=== PATIENT | male | born 1985 | race Caucasian/White ===

== ENCOUNTER 2024-04-07 17:42 | Emergency (ER) | payer BC, SELFPAY ==
--- NOTE | 2024-04-07 18:05 | ED_ITS ---
Discharge Plan Disposition Patient Disposition: Home, Self-Care Condition: Good Prescriptions Prescriptions: New doxycycline hyclate 100 mg capsule 100 mg PO Q12 10 Days Qty: 20 0RF cephalexin 500 mg capsule 500 mg PO QID 10 Days Qty: 40 0RF mupirocin 2 % ointment 1 applic topical TID 7 Days Qty: 15 0RF No Action metformin 500 mg tablet PO 90 Days Qty: 180 Patient Comments: simvastatin 20 mg tablet 20 mg PO QPM Referrals Follow up/Referrals: Tereza Waters [Primary Care Provider] - See instructions Activity Restrictions/Add. Instructions Additional Instructions/Restrictions: Rest the extremities, Elevate the extremities as tolerated while you are resting. Take tylenol or ibuprofen for pain. Take the antibiotics as directed. Apply the topical antibiotic ointment to the affected areas as directed. Follow up with Dr. Jimenez (podiatry). I put in a referral but you need to call her office and schedule an appointment. Soak your feet in warm epsom salts water 2 or 3 times per day for the next fews days. MAKE ABSOLUTELY SURE YOU DON'T BURN YOUR FEET BY THE WATER BEING TOO HOT. Follow up with your regular doctor. GO TO THE ER FOR ANY WORSENING SYMPTOMS We took a culture the drainage from your right great toe. This will tell what bacteria is causing your infection and which antibiotics will treat it best.This test takes 3 days to complete. Make sure you follow up to go over these results with your pcp or the bill distributor. Clinical Impressions Clinical Impression: Cellulitis of foot, right, Cellulitis of left foot, Diabetes Instructions Patient Instructions: Cellulitis Print Language Print Language: Latvian Discharge ED Provider: Raghu Pierre [facility] General Stated complaint: swollen right foot Time Seen by Provider: 04/07/24 18:05 History of Present Illness Provider Complaint: He states that for the past 3 days he has had worsening bilateral toe redness, swelling and drainage. He is a diabetic. He has been playing a lot of golf recently. He bought new golf shoes last week. He denies fever/chills/malaise. Related Data Home Medications ?Medication ?Instructions ?Recorded ?Confirmed metformin 500 mg tablet PO 90 days ##180 08/29/17 simvastatin 20 mg tablet 20 mg PO QPM 08/29/17 Previous Rx's ?Medication ?Instructions ?Recorded cephalexin 500 mg capsule 500 mg PO QID 10 days #40 caps 04/07/24 doxycycline hyclate 100 mg capsule 100 mg PO Q12 10 days #20 caps 04/07/24 mupirocin 2 % topical ointment 1 applic topical TID 7 days #15 04/07/24 grams Allergies Allergy/AdvReac Type Severity Reaction Status Date / Time Sulfa (Sulfonamide Allergy Mild Verified 08/29/17 12:37 Antibiotics) [facility] Disclaimer: The information contained in this section may have been updated after the patient was seen, as this information can be updated by other users. Social History Smoking Status: Never smoker alcohol intake: current alcohol intake frequency: holidays/special occasions only current occupational status: employed Travel in the last 8 weeks: None ROS Obtained: Yes All systems reviewed & no additional complaints except as documented Constitutional Constitutional: Denies chills and Denies fever(s) Eyes Eyes: Denies eye discharge ENT Ears, Nose, Mouth, and Throat: Denies dizziness, Denies otalgia and Denies sore throat Cardiovascular Cardiovascular: Denies chest pain Respiratory Respiratory: Denies shortness of breath, Denies chest congestion, Denies cough, Denies stridor and Denies wheezing Gastrointestinal Gastrointestingal: Denies nausea or vomiting Musculoskeletal Musculoskeletal: Reports system reviewed and no additional complaints, except as documented and Denies arthralgias Integumentary/Breasts Skin/Breast: Reports as per HPI, Reports redness and Reports wounds Neurologic Neurologic: Denies dizziness and Denies paresthesias Allergic/Immunologic Allergic/Immunologic: Denies wheezing Physical Exam General General appearance: alert and in no apparent distress Head Head exam: atraumatic, normocephalic and normal inspection Eye Eye exam: Present normal appearance, PERRL and EOMI ENT ENT exam: Present normal exam, normal oropharynx, mucous membranes moist, TM's normal bilaterally and normal external ear exam Neck Neck exam: Present normal inspection, full ROM and trachea midline; Absent meningismus or lymphadenopathy Chest Chest inspection: Present normal inspection and symmetric chest wall rise; Absent tenderness Respiratory Respiratory exam: Present normal lung sounds bilaterally; Absent respiratory distress Cardiovascular Cardiovascular exam: Present regular rate and normal rhythm; Absent JVD Abdominal Exam Abdominal exam: Present soft and normal bowel sounds; Absent distention, tenderness or guarding Extremities Exam Extremities exam: Present normal inspection, full ROM and normal capillary refill; Absent calf tenderness Back Exam Back exam: Present normal inspection; Absent tenderness Neurological Exam Neurological exam: Present alert and oriented X3 Psychiatric Psychiatric exam: Present normal affect and normal mood Skin Skin exam: Present erythema (there is erythema of both his great toes, his right great toe has a moderate amount of clear drainage in the lateral nail fold. ) Lymphatic Lymphatic Findings: no adenopathy Medical Decision Making Medical Records Medical records reviewed: No I reviewed the patient's medical records. Screening: Per USPSTF and CDC recommendations, given the prevalence of disease in our region, it is our hospital?s policy to screen for HIV and viral Hepatitis for all patients aged 18 and over and those with ongoing risk factors. Sal Inquiry Pt receiving controlled substance: No
[2024-04-07 18:10] VITALS: BP 126/75; PULSE 83; RESP 20; TEMP 36.6; O2SAT 96; BMI 38.1
[2024-04-07] MEDS: LIDOCAINE 1% 5ML PF VIAL IM (18:43)
[2024-04-07] MEDS: cefTRIAXone 1GM VIAL 1 GM IM (18:43)
[2024-04-07 19:13] VITALS: BP 126/75; PULSE 83; RESP 20; TEMP 36.6; O2SAT 96
--- NOTE | 2024-04-12 15:03 | PC.NURSE ---
REVIEWED PATIENT'S WOUND CULTURE RESULTS WITH Evelyn KHOURY APRN. THERE IS NO SENSITIVITY WITH THE CULTURE. SPOKE WITH TRENT FROM PHARMACY WHO STATES ORGANISM IS NORMAL TORY AND PATIENT SHOULD CONTINUE CURRENT ANTIBIOTIC
== END 2024-04-07 19:14 | disposition home or self-care (01) ==
PROVIDERS: Emergency Provider Nurse Practitioner Family; PCP Nurse Practitioner Family
DX: L03.115 Cellulitis of right lower limb (principal); L03.116 Cellulitis of left lower limb; B96.89 Other specified bacterial agents as the cause of diseases classified elsewhere; E11.9 Type 2 diabetes mellitus without complications; Z79.84 Long term (current) use of oral hypoglycemic drugs
CPT/HCPCS: 87070; 87077; 87205; 96372; 99204; 99212; G0463; J0696

== ENCOUNTER 2024-05-03 14:15 | Outpatient (CLI) | payer BC, SELFPAY ==
--- NOTE | 2024-05-03 14:21 | XR_ITS ---
PROCEDURE INFORMATION: Exam: XR Right Foot Complete; Alignment Exam date and time: 05/03/2024 2:26 PM Age: 38 years old Clinical indication: Pain; Foot; Right; Additional info: Foot pain/injury TECHNIQUE: Imaging protocol: Radiologic exam of the right foot. Views: 3 or more views. COMPARISON: No relevant prior studies available. FINDINGS: Bones/joints: Acute transverse fracture through the 5th metatarsal proximal diaphysis. Moderate posterior calcaneal enthesophyte. Soft tissues: Soft tissue swelling. IMPRESSION: Acute transverse fracture through the 5th metatarsal proximal diaphysis.
== END 2024-05-03 23:59 | disposition home or self-care (01) ==
LOC: RAD 14:17
PROVIDERS: PCP Nurse Practitioner Family; Visit Provider Podiatrist
DX: M79.671 Pain in right foot (principal); S99.921A Unspecified injury of right foot, initial encounter
CPT/HCPCS: 73630

== ENCOUNTER 2024-05-03 15:43 | Outpatient (RCR) | payer BC, SELFPAY | END 2024-05-03 16:30 | disposition home or self-care (01) | LOC: PT 15:43 | PROVIDERS: Visit Provider Podiatrist | DX: M77.41 Metatarsalgia, right foot (principal); S92.351A Displaced fracture of fifth metatarsal bone, right foot, initial encounter for closed fracture | CPT/HCPCS: 97760 ==

== ENCOUNTER 2024-05-13 09:28 | Outpatient (CLI) | payer BC, SELFPAY ==
--- NOTE | 2024-05-13 09:31 | XR_ITS ---
PROCEDURE INFORMATION: Exam: XR Right Foot Exam date and time: 05/13/2024 9:34 AM Age: 38 years old Clinical indication: Difficulty in walking; Additional info: 5th met fracture TECHNIQUE: Imaging protocol: Radiologic exam of the right foot. Views: 3 or more views. COMPARISON: CR XR FOOT WT BEARING RT 3V 05/03/2024 2:26 PM FINDINGS: Bones/joints: Healing nondisplaced 5th metatarsal fracture. Fracture fragments are in good alignment.. Degenerative changes in the 1st metatarsophalangeal joint and IP joint Soft tissues: Soft tissue swelling along the ulnar aspect of the foot IMPRESSION: Healing nondisplaced 5th metatarsal fracture. Fracture fragments are in good alignment..
[2024-05-13 11:12] LABS: Basophils # 0.2 K/mm3 (0-0.2); Basophils % 1.8 % (0.1-2.0); Eosinophils # 0.4 K/mm3 (0.0-0.4); Eosinophils % 4.2 % (0.1-12.0); Hematocrit 44.7 % (42.0-52.0); Hemoglobin 15.3 g/dL (14.1-18.0); Lymphocytes # 1.9 K/mm3 (0.7-4.5); Lymphocytes % 22.4 % (10-50); Mean Corpuscular HGB Conc 34.3 g/dL (31.8-35.4); Mean Corpuscular Hemoglobin 27.4 pg (27.0-31.2); Mean Corpuscular Volume 79.8 fl (80-94); Mean Platelet Volume 6.8 fl (7.4-10.4); Monocytes # 0.6 K/mm3 (0.1-1.0); Monocytes % 6.3 % (1.7-9.3); Neutrophils # 5.7 K/mm3 (1.8-7.8); Neutrophils % 65.3 % (37.0-80.0); Platelet Count 263 K/mm3 (142-424); Red Cell Distribution Width 13.3 % (11.5-17.5); White Blood Count 8.7 K/mm3 (4.8-10.8)
[2024-05-13 11:22] LABS: Hemoglobin A1C 8.1 % (4.0-6.0)
[2024-05-13 11:46] LABS: Alanine Aminotransferase 61 U/L (12-78); Albumin Level 4.5 g/dl (3.5-5.0); Albumin/Globulin Ratio 1.6 (1.1-1.8); Alkaline Phosphatase 69 U/L (38-126); Anion Gap 20.5 mEq/L (5-15); Aspartate Amino Transferase 38 U/L (17-59); Bilirubin,Total 0.8 mg/dl (0.2-1.3); Blood Urea Nitrogen 16 mg/dl (9-20); Calcium 9.4 mg/dl (8.4-10.2); Carbon Dioxide 24 mmol/L (22.0-30.0); Chloride 97 mmol/L (98-107); Estimated Glomerular Filt Rate 126 ml/min (>60); GFR (African American) 152 ML/MIN (>60); Globulin 2.8 g/dL (1.3-3.2); Glucose 226 mg/dl (74-100); Potassium 4.5 mmoL/L (3.5-5.1); Sodium 137 mmol/L (136-145); Total Protein,Serum 7.3 g/dl (6.3-8.2)
[2024-05-13 11:51] LABS: C-Reactive Protein 3.9 mg/L (0-4)
[2024-05-13 12:24] LABS: Erythrocyte Sedimentation Rate 5 mm/hr (0-15)
[2024-05-25 03:43] LABS: 1,25 Dihydroxy Vitamin D 42 pg/mL (.); 1,25-Dihydroxy, Vitamin D-2 <10 pg/mL (.); 1,25-Dihydroxy, Vitamin D-3 34 pg/mL (.)
== END 2024-05-13 23:59 | disposition home or self-care (01) ==
PROVIDERS: PCP Nurse Practitioner Family; Visit Provider Podiatrist
DX: S92.353A Displaced fracture of fifth metatarsal bone, unspecified foot, initial encounter for closed fracture (principal); Z01.818 Encounter for other preprocedural examination
CPT/HCPCS: 36415; 73630; 80053; 82652; 83036; 85025; 85651; 86140

== ENCOUNTER 2024-05-17 08:49 | Outpatient (CLI) | payer BC, SELFPAY ==
--- NOTE | 2024-05-17 08:54 | XR_ITS ---
PROCEDURE INFORMATION: Exam: XR Chest Exam date and time: 05/17/2024 8:56 AM Age: 38 years old Clinical indication: Shortness of breath; Additional info: Pre-operative exam, dm, SOB TECHNIQUE: Imaging protocol: Radiologic exam of the chest. Views: 2 views. COMPARISON: No relevant prior studies available. FINDINGS: Lungs: Atelectasis left base. No consolidation. Pleural spaces: Unremarkable. No pleural effusion. No pneumothorax. Heart/Mediastinum: Unremarkable. No cardiomegaly. Bones/joints: Unremarkable. IMPRESSION: No acute findings.
--- NOTE | 2024-05-17 09:23 | ECG_ITS ---
APPROVED REPORT Exam: Resting ECG HR:80 bpm ECG Measurements Heart Rate 80 AXES NE 139 P 42 QRSd 103 QRS 9 QT 380 T 49 QTc 416 Conclusion SINUS RHYTHM LOW QRS VOLTAGE IN PRECORDIAL LEADS [QRS DEFLECTION < 1.0 mV IN CHEST LEADS] BORDERLINE ECG UNCONFIRMED REPORT Electronically signed by : Rocky Cox MD 05/20/2024 08:21:41
== END 2024-05-17 23:59 | disposition home or self-care (01) ==
LOC: RAD 08:51
PROVIDERS: PCP Nurse Practitioner Family; Visit Provider Podiatrist
DX: Z01.818 Encounter for other preprocedural examination (principal)
CPT/HCPCS: 71046; 93005

== ENCOUNTER 2024-05-29 14:47 | Outpatient (CLI) | payer BC, SELFPAY ==
--- NOTE | 2024-05-29 14:51 | XR_ITS ---
FINAL REPORT CLINICAL HISTORY: evaluate fracture healing fracture 4 weeks ago COMPARISON: None FINDINGS: RIGHT FOOT: Three views of the right foot were obtained. There is a subacute appearing nondisplaced fracture of the proximal fifth metatarsal. No significant callus formation is identified. The joint spaces are intact. There is no soft tissue abnormality. IMPRESSION: Subacute appearing nondisplaced fracture of the proximal fifth metatarsal. No significant callus formation is identified. Reviewed, Interpreted and Dictated by Jesus Mac III, MD Transcribed by Donna Reyna Authenticated and . [facility]
== END 2024-05-29 23:59 | disposition home or self-care (01) ==
LOC: RAD 14:48
PROVIDERS: PCP Nurse Practitioner Family; Visit Provider Podiatrist
DX: S99.191A Other physeal fracture of right metatarsal, initial encounter for closed fracture (principal)
CPT/HCPCS: 73630

== ENCOUNTER 2024-06-05 10:16 | Day surgery (SDC) | payer BC, SELFPAY ==
[2024-06-04 09:48] VITALS: BMI 37.5
[2024-06-05] VITALS (10 sets, daily range): BP systolic 113–150; BP diastolic 64–88; PULSE 79–94; RESP 16–20; TEMP 36.1–36.6; O2SAT 92–96
[2024-06-05 11:06] LABS: POC Glucose,Bedside 129 (70-110)
--- NOTE | 2024-06-05 11:37 | EXP.ANES.CKL ---
[facility] Disclaimer: The information contained in this section may have been updated after the patient was seen, as this information can be updated by other users. Medical History Hyperlipidemia Hypertension Fracture of base of fifth metatarsal bone of right foot at metaphyseal-diaphyseal junction Diabetes Surgical History H/O wisdom tooth extraction Family History Father Family history of diabetes mellitus type II Grandmother Family history of diabetes mellitus type II Colon cancer Melanoma Mother Melanoma Social History Smoking Status: Former smoker alcohol intake: never substance use type: denies use current occupational status: employed Travel in the last 8 weeks: None [facility] Anesthesia Checklist Patient Identification Patient Identification: Arm Band and Verbal (Name & ) Structural Data Admitted From: Home Planned Operative Procedure/s: R. 5th metatarsal ORIF Consent for Planned Operative Procedure(s) Verified: Yes Verified Documents: Surgical Consent and History and Physical NPO Status Verified Time NPO: 00:00 Additional verifications Anesthesia Reactions: No Hx Blood Transfusions: No Blood Transfusion Reaction: No Airway Assessment Mallampati Score:: Class II C-Spine Mobility Assessed: Yes TMJ Mobility Assessed: Yes Dentition: Good Dentition Neurological Assessment Level of Consciousness: Awake Hx Seizures: No Numbness or tingling in extremities: No Anesthesia Plan Anesthesia Risk discussed: Yes Anesthesia Plan: Verified ASA Class: III Anesthesia Type: General w/block
--- NOTE | 2024-06-05 12:57 | XR_ITS ---
FINAL REPORT CLINICAL HISTORY: ORIF 5TH METAT 2.38 MGY 1.15 FT FINDINGS: FLUOROSCOPY LESS THAN 1 HOUR HISTORY: Fluoroscopy guidance. Fluoroscopic guidance was provided for right foot fifth metatarsal ORIF. 2 spot films were obtained. A total of 1.15 minutes of fluoroscopy time were used. Total DAP: 2.38 mGy IMPRESSION: As above. Reviewed, Interpreted and Dictated by Francisco Castro MD Transcribed by Madelin Huang Authenticated and [facility]
--- NOTE | 2024-06-05 13:06 | P.PNANES_ITS ---
[facility] Anesthesia Record Part I Anesthesia Record I Intake, IV Amount: 1,200 Hydration: Adequate Estimated blood loss (mL): 20 Urine output (mL): 0 Blood Pressure: 113/64 SaO2: 94 Pulse Rate: 85 Airway Patency: Patent Respiratory Rate: 20 Temperature: 97.4 F Patient is:: Drowsy Stable to PACU at:: 13:00
--- NOTE | 2024-06-05 13:11 | EXP.OP.NOTE ---
Date of procedure: 06/05/24 Pre-op Diagnosis:: Right fifth metatarsal Palm fracture Peroneal tenosynovitis Post-op Diagnosis:: Same Procedure performed:: Right fifth metatarsal ORIF Peroneal tenosynovectomy Surgeon:: Sarah Jimenez DPM FOIL SPOOLER:: Alicia Card Anesthesia: GETA and regional (Left regional block) Estimated blood loss (mL): 10 Clinical Note:: Patient is 38 diabetic male presents with right foot pain s/p twisting injury 05/02/24. X-rays reviewed and discussed with the patient. Conservative treatment discussed including prolonged nonweightbearing immobilization in fracture boot. Explained to the nature of the Palm fracture and decreased vascularity from the watershed area fracture healing nonoperatively may take 8-12 weeks. Discussed due to pes cavus foot type, over loading lateral column is higher risk for ankle sprain, 5th met fx, peroneal pathology. Discussed increased 5th met fx recurrence risk. Patient would like a shorter return to activity if possible. We discussed surgery. Discussed that there still could be a prolonged period of immobilization even postoperatively and if the fracture is not healed by 12 weeks, he may need a bone stimulator. Patient understands surgery does not guarantee fracture healing but there is a decrease chance of fracture recurrence. Discussed increased risk secondary to diabetes including Charcot, prolonged healing and skin or bone. Has history of HA1C over 9%. Patient understands his A1c will need to be 8% to proceed with surgery. Discussed minimally invasive surgery to decrease risk of skin/wound healing and infection. All risks and benefits were discussed including but not limited to: damage to blood vessels and nerves, bleeding, infection, wound complications, delayed, mal or non-union of bone, post-traumatic arthritis, need for further surgery, implant failure, need for removal of implant, prolonged or permanent swelling of the extremity, prolonged or permanent pain or deformity, CRPS/RSD, DVT/PE, and anesthetic complications including . No guarantees were given. All questions fully answered. The patient verbalized understanding and agreed to proceed with surgery. Written consent was obtained. Patient has a fracture boot and RKS. Necessary labs and pre-op testing ordered: CBC, CMP, ESR, CRP, EKG, CXR. Plan for Bactrim vs Doxy post op. EKG, chest x-ray reviewed and medical clearance from PCPTereza. Operative findings:: Right fifth metatarsal Palm fracture noted. There is no callus noted at the fracture site. Peroneal tendon had tenosynovitis noted. No obvious peroneal tendon tear or rupture noted. Operative note:: On this date and time patient was deemed an appropriate surgical candidate. With informed consent signed, pre-op regional popliteal block given by anesthesia. The patient was taken to the operating theater. The patient was positioned supine. General anesthesia was induced. IV Ancef given. Tourniquet applied to the right mid-calf. Right lower extremity was prepped and draped in normal sterile fashion. Right Bone Marrow Aspiration: Attention was directed to the lateral foot, where intra-op fluoroscopy was used to map out the 5th metatarsal base on both the AP, MO and lateral views. 15 blade was used to make a stab incision over the fracture site under intraoperative fluoroscopy. Dissection down to level of bone. Curette used to clean the fracture site. Saline used to flush wound. 3cc of blood was withdrawn to mix with the Ignite for BMA to insert into fracture site. Right 5th Metatarsal/Palm Fracture ORIF: Attention was directed to the lateral foot, where intra-op fluoroscopy was used to map out the 5th metatarsal base on both the AP, MO and lateral views. Next, a 15' blade was used to make a small incision proximal to the 5th met base. Blunt dissection was utilized to dissect thru skin and subcutaneous tissue with care taken to maintain surgical hemostasis and safely retract neurovascular structures. Dissection was then carried bluntly with a hemostat to the bone. Fracture was derotated and reduced. The wound was flushed with copious amounts of saline. A guide wire for a 5.5mm Marroquin medical screw was inserted under fluoro. Position was checked in all 3 planes. The K-wire was in good position, extending down the medullary canal. At this point, a cannulated drill and tap were used. Ignite inserted into fracture site. The guide wire was then removed and a 64mm solid core 5.5mm Vilex medical screw was inserted in standard technique, while compressing the fracture. Good screw purchase and compression was noted. At this point final position was checked under intra-op fluoro and deemed to be appropriate with stable fixation. Right peroneal tenosynovectomy: The peroneal tendon had synovitis noted. 15 blade and forceps used to debride the tenosynovitis. A piece was removed and sent for specimen. No obvious tear or rupture noted. Wound flushed. Nylon used to reapproximate skin. Skin cleansed. Tourniquet not utilized. Capillary fill time at baseline. Skin cleansed. Xeroform, dry sterile dressing was applied followed by fracture boot. The patient was awoken from anesthesia and transferred to recovery with vital signs stable and neurovascular status intact. Patient appeared to tolerate procedure and anesthesia well without complication. Materials: Vilex 5.5mm solid core partially threaded screw, 64mm; Marroquin [facility] BMA Discharge/Plan: Patient is to maintain posterior splint clean dry and intact. Ice behind the knee and elevate on two pillows. Non weight bearing to the right lower extremity with crutches/RKS. Take Rx as previously directed. Obtain post op films, right foot. Follow up with me in one week as scheduled for incision check. Condition: stable Disposition: same day Specimens:: Right peroneal tendon Complications:: None
[2024-06-05 13:23] LABS: POC Glucose,Bedside 162 (70-110)
--- NOTE | 2024-06-05 13:30 | XR_ITS ---
FINAL REPORT CLINICAL HISTORY: S/p 5th met ORIF COMPARISON: 05/29/2024 FINDINGS: Right foot Three views were obtained. Since the prior exam there has been placement of a single orthopedic screw securing the base of the first metatarsal. The proximal end of the screw extends posterior to the bony cortex 7 mm. The fracture fragments are well aligned. IMPRESSION: Postsurgical changes as above. Reviewed, Interpreted and Dictated by Francisco Castro MD Transcribed by Alondra Eastman Authenticated and [facility]
--- NOTE | 2024-06-06 07:26 | EXP.ANES.II ---
[facility] Anesthesia Record Part II Anesthesia Record Part II Discharge Time: 13:30 Destination: Surgical Day Care (OP Surgery) PACU nurse assessment reviewed?: Yes Patient Condition:: Good Anesthesia Complications:: None Swallowing reflex intact?: Yes Airway Patency: Patent Cyanosis?: No Blood Pressure: 132/88 SaO2: 95 Respiratory Rate: 18 Pulse Rate: 94 Temperature: 97 F Mental Status: Alert & Oriented Pain level:: 0 Nausea and/or vomitting:: None Intake, IV Amount: 0 Hydration: Adequate
[2024-06-06 07:27] VITALS: BP 132/88; PULSE 94; RESP 18; TEMP 36.1; O2SAT 95
== END 2024-06-05 14:02 | disposition home or self-care (01) ==
PROVIDERS: PCP Nurse Practitioner Family; Visit Provider Podiatrist
PROC: (CPT 27626; principal; 2024-06-05 11:45)
DX: S92.351A Displaced fracture of fifth metatarsal bone, right foot, initial encounter for closed fracture (principal); M65.871 Other synovitis and tenosynovitis, right ankle and foot; M79.671 Pain in right foot; E11.40 Type 2 diabetes mellitus with diabetic neuropathy, unspecified; Z79.84 Long term (current) use of oral hypoglycemic drugs; W01.0XXA Fall on same level from slipping, tripping and stumbling without subsequent striking against object, initial encounter
CPT/HCPCS: 27626; 28485; 73620; 73630; 76000; 82962; C1713; C9144; J2250; J2405; J3010; J7120

== ENCOUNTER 2024-06-21 14:32 | Emergency (ER) | payer BC, SELFPAY ==
--- NOTE | 2024-06-21 16:02 | ED_ITS ---
Discharge Plan Disposition Patient Disposition: Home, Self-Care Condition: Good Prescriptions Prescriptions: New mupirocin 2 % ointment 1 applic topical TID 7 Days Qty: 15 0RF No Action metformin 500 mg tablet 500 mg PO DAILY 90 Days Qty: 180 Patient Comments: simvastatin 20 mg tablet 20 mg PO QPM lisinopril 20 mg tablet 20 mg PO DAILY Patient Comments: TAKE 1 TABLET BY MOUTH ONCE DAILY AT NIGHT Mounjaro 10 mg/0.5 mL pen injector 12 mg SQ DAILY Patient Comments: INJECT 1/2 (ONE-HALF) ML ONCE A WEEK Referrals Follow up/Referrals: Tereza Waters [Primary Care Provider] - See instructions Activity Restrictions/Add. Instructions Additional Instructions/Restrictions: Continue the doxycycline that Dr. Jimenez started you on. Start the mupirocin topical medication and use it as directed on the red areas on your leg. Follow up with your regular doctor. Continue to follow up with Dr. Jimenez. GO TO THE ER FOR ANY WORSENING SYMPTOMS Clinical Impressions Clinical Impression: Cellulitis of right leg Instructions Patient Instructions: Cellulitis, Mupirocin Print Language Print Language: Italian Discharge ED Provider: Raghu Pierre [facility] General Stated complaint: R leg pain, rash Time Seen by Provider: 06/21/24 16:02 Related Data Home Medications ?Medication ?Instructions ?Recorded ?Confirmed metformin 500 mg tablet 500 mg PO DAILY 90 days ##180 08/29/17 06/21/24 simvastatin 20 mg tablet 20 mg PO QPM 08/29/17 06/21/24 lisinopril 20 mg tablet 20 mg PO DAILY 04/18/24 06/21/24 tirzepatide 10 mg/0.5 mL 12 mg SQ DAILY 06/04/24 06/21/24 subcutaneous pen injector (Mounjaro) Previous Rx's ?Medication ?Instructions ?Recorded mupirocin 2 % topical ointment 1 applic topical TID 7 days #15 06/21/24 grams Allergies Allergy/AdvReac Type Severity Reaction Status Date / Time Sulfa (Sulfonamide Allergy Mild Hives Verified 06/20/24 10:07 Antibiotics) [facility] Disclaimer: The information contained in this section may have been updated after the patient was seen, as this information can be updated by other users. Medical History Hyperlipidemia Hypertension Fracture of base of fifth metatarsal bone of right foot at metaphyseal- diaphyseal junction Diabetes Surgical History H/O wisdom tooth extraction Family History Father Family history of diabetes mellitus type II Grandmother Family history of diabetes mellitus type II Colon cancer Melanoma Mother Melanoma Social History Smoking Status: Former smoker alcohol intake: never substance use type: denies use current occupational status: employed Travel in the last 8 weeks: None ROS Obtained: Yes All systems reviewed & no additional complaints except as documented Constitutional Constitutional: Denies chills and Denies fever(s) Eyes Eyes: Denies eye discharge ENT Ears, Nose, Mouth, and Throat: Denies dizziness, Denies otalgia and Denies sore throat Cardiovascular Cardiovascular: Denies chest pain Respiratory Respiratory: Denies shortness of breath, Denies chest congestion, Denies cough, Denies stridor and Denies wheezing Gastrointestinal Gastrointestingal: Denies nausea or vomiting Musculoskeletal Musculoskeletal: Reports system reviewed and no additional complaints, except as documented and Denies arthralgias Integumentary/Breasts Skin/Breast: Reports as per HPI and Reports redness Neurologic Neurologic: Denies dizziness and Denies paresthesias Allergic/Immunologic Allergic/Immunologic: Denies wheezing Physical Exam General General appearance: alert and in no apparent distress Head Head exam: atraumatic, normocephalic and normal inspection Eye Eye exam: Present normal appearance, PERRL and EOMI ENT ENT exam: Present normal exam, normal oropharynx, mucous membranes moist, TM's normal bilaterally and normal external ear exam Neck Neck exam: Present normal inspection, full ROM and trachea midline; Absent meningismus or lymphadenopathy Chest Chest inspection: Present normal inspection and symmetric chest wall rise; Absent tenderness Respiratory Respiratory exam: Present normal lung sounds bilaterally; Absent respiratory distress Cardiovascular Cardiovascular exam: Present regular rate and normal rhythm; Absent JVD Abdominal Exam Abdominal exam: Present soft and normal bowel sounds; Absent distention, tenderness or guarding Extremities Exam Extremities exam: Present normal inspection, full ROM and normal capillary refill; Absent calf tenderness Back Exam Back exam: Present normal inspection; Absent tenderness Neurological Exam Neurological exam: Present alert and oriented X3 Psychiatric Psychiatric exam: Present normal affect and normal mood Skin Skin exam: Present warm, dry, intact and normal color Lymphatic Lymphatic Findings: no adenopathy Medical Decision Making Medical Records Medical records reviewed: No I reviewed the patient's medical records. Screening: Per USPSTF and CDC recommendations, given the prevalence of disease in our region, it is our hospital?s policy to screen for HIV and viral Hepatitis for all patients aged 18 and over and those with ongoing risk factors. Sal Inquiry Pt receiving controlled substance: No CT Data ED CT Reviewed: Yes I have reviewed the patient's CT results US Data US Images: Lower Extremity ED US Reviewed: Yes I have reviewed the patient's US results Preliminary Findings: Normal/NAD
[2024-06-21 16:06] VITALS: BP 112/71; PULSE 87; RESP 20; TEMP 36.8; O2SAT 97; BMI 37.5
--- NOTE | 2024-06-21 16:23 | CA_ITS ---
FINAL REPORT TECHNIQUE: Color Doppler, duplex Doppler and compression sonography of the right lower extremity venous system was performed. CLINICAL HISTORY: PT HAD ORIF OF RT 5TH MT ON 06/05, PT HAS REDNESS AND RASH RIGHT CALF WITH PAIN STARTED THIS AM COMPARISON: None FINDINGS: There is no evidence of deep venous thrombosis from the level of the groin to the calf. The veins are patent and compressible. There is a 2.8 cm lymph node in the right groin which is nonspecific and favored to be reactive. IMPRESSION: No evidence of deep venous thrombosis right lower extremity. Nonspecific 2.8 cm lymph node in the right groin, favor reactive. Reviewed, Interpreted and Dictated by Jesus Mac III, MD Transcribed by Madelin Huang Authenticated and . [facility]
[2024-06-21 17:00] VITALS: BP 112/71; PULSE 87; RESP 20; TEMP 36.8
== END 2024-06-21 17:03 | disposition home or self-care (01) ==
PROVIDERS: Emergency Provider Nurse Practitioner Family; PCP Nurse Practitioner Family
DX: L03.115 Cellulitis of right lower limb (principal); M79.604 Pain in right leg; R21 Rash and other nonspecific skin eruption
CPT/HCPCS: 93971; 99212; G0381

== ENCOUNTER 2024-06-27 10:16 | Outpatient (CLI) | payer BC, SELFPAY ==
--- NOTE | 2024-06-27 10:20 | XR_ITS ---
FINAL REPORT CLINICAL HISTORY: s/p right fifth met ORIF COMPARISON: 06/05/2024 FINDINGS: Right foot Three views were obtained. There are postoperative changes in the proximal fifth metatarsal with a screw. Small amount of callus formation is seen at the fracture site. IMPRESSION: Postsurgical changes as above. Reviewed, Interpreted and Dictated by Jesus Mac III, MD Transcribed by Alondra Eastman Authenticated and . [facility]
== END 2024-06-27 23:59 | disposition home or self-care (01) ==
LOC: RAD 10:18
PROVIDERS: PCP Nurse Practitioner Family; Visit Provider Podiatrist
DX: Z98.890 Other specified postprocedural states (principal); M79.671 Pain in right foot
CPT/HCPCS: 73630

== ENCOUNTER 2024-07-25 10:02 | Outpatient (CLI) | payer BC, SELFPAY ==
--- NOTE | 2024-07-25 10:06 | XR_ITS ---
FINAL REPORT CLINICAL HISTORY: Postoperative healing COMPARISON: 06/27/2024 FINDINGS: RIGHT FOOT 3 views of the right foot were obtained. There is an orthopedic screw securing a healing fracture or osteotomy deformity at the base of the fifth metatarsal. There is no acute fracture or dislocation. Visualized joint spaces are normally aligned. Soft tissues are unremarkable. IMPRESSION: Healing fifth metatarsal defect. Reviewed, Interpreted and Dictated by Francisco Castro MD Transcribed by Madelin Huang Authenticated and [facility]
== END 2024-07-25 23:59 | disposition home or self-care (01) ==
LOC: RAD 10:04
PROVIDERS: PCP Nurse Practitioner Family; Visit Provider Podiatrist
DX: M79.671 Pain in right foot (principal)
CPT/HCPCS: 73630

== ENCOUNTER 2024-08-15 10:33 | Outpatient (CLI) | payer BC, SELFPAY ==
--- NOTE | 2024-08-15 10:34 | XR_ITS ---
FINAL REPORT CLINICAL HISTORY: foot pain COMPARISON: 07/25/2024 FINDINGS: RIGHT FOOT 3 views of the right foot were obtained. There is an orthopedic screws securing a transverse fracture of the base of the fifth metatarsal, which is stable in appearance when compared to the prior exam. Visualized joint spaces are normally aligned. Soft tissues are unremarkable. IMPRESSION: Orthopedic screws secure is a transverse fracture of the base of the fifth metatarsal, stable when compared to the prior exam of 07/25/2024. Reviewed, Interpreted and Dictated by Francisco Castro MD Transcribed by Donna Reyna Authenticated and [facility]
== END 2024-08-15 23:59 | disposition home or self-care (01) ==
LOC: RAD 10:33
PROVIDERS: PCP Nurse Practitioner Family; Visit Provider Podiatrist
DX: M79.671 Pain in right foot (principal)
CPT/HCPCS: 73630

== ENCOUNTER 2024-09-12 09:47 | Outpatient (CLI) | payer BC, SELFPAY ==
--- NOTE | 2024-09-12 09:49 | XR_ITS ---
FINAL REPORT CLINICAL HISTORY: Foot pain apr - fx nov - surgery COMPARISON: 08/15/2024 FINDINGS: RIGHT FOOT: Three views 3 views of the right foot once again demonstrate post-ORIF changes of the base of the fifth metatarsal. The fracture line remains evident, although slightly less evident than seen on the prior exam. There are no new bony abnormalities identified. The joint spaces appear normal. IMPRESSION: Post-ORIF base of the fifth metatarsal, with mild partial healing as described. Reviewed, Interpreted and Dictated by Gamaliel Hernandez MD Transcribed by Donna Reyna Authenticated and [facility]
== END 2024-09-12 23:59 | disposition home or self-care (01) ==
LOC: RAD 09:47
PROVIDERS: PCP Nurse Practitioner Family; Visit Provider Podiatrist
DX: M79.671 Pain in right foot (principal)
CPT/HCPCS: 73630

== ENCOUNTER 2024-10-15 10:06 | Outpatient (CLI) | payer BC, SELFPAY ==
--- NOTE | 2024-10-15 10:11 | XR_ITS ---
FINAL REPORT CLINICAL HISTORY: s/p right 5th met ORIF..pain COMPARISON: 09/12/2024 FINDINGS: RIGHT FOOT 3 views of the right foot were obtained. There is no acute fracture or dislocation. There is a fixation screw within the fifth metatarsal. There is no evidence of bony union involving the proximal fifth metatarsal fracture. There is 2 mm of bony separation present. IMPRESSION: No demonstrable bony union of the fifth metatarsal fracture. Reviewed, Interpreted and Dictated by Gamaliel Hernandez MD Transcribed by Ann Blank Authenticated and [facility]
== END 2024-10-15 23:59 | disposition home or self-care (01) ==
LOC: RAD 10:07
PROVIDERS: PCP Nurse Practitioner Family; Visit Provider Podiatrist
DX: M79.671 Pain in right foot (principal); Z98.890 Other specified postprocedural states; S99.191K Other physeal fracture of right metatarsal, subsequent encounter for fracture with nonunion
CPT/HCPCS: 73630

== ENCOUNTER 2024-12-23 08:42 | Outpatient (CLI) | payer BC, SELFPAY ==
--- NOTE | 2024-12-23 08:44 | XR_ITS ---
FINAL REPORT CLINICAL HISTORY: s/p Right 5th met ORIF COMPARISON: 10/15/2024 FINDINGS: RIGHT FOOT Three views demonstrate no acute fracture or dislocation. There is an orthopedic screw securing a transverse fracture through the base of the fifth metatarsal. There has been progressive bony resorption along the fracture line as compared to previous exam. There may be a malunion. The other remaining bony structures appear intact. IMPRESSION: Progressive bony resorption along the fracture line. Reviewed, Interpreted and Dictated by Francisco Castro MD Transcribed by Kylee Tamez Authenticated and [facility]
--- OUTSIDE RECORDS SUMMARY | 2024-12-23 08:47 | XMS_ITS | Encounter Summary ---
Author Organization [facility] Address [address] [place] [id number] Care Team Providers Care Oral Communication Instructor Name Role Phone Tereza Waters LABOURERS Primary Care Provider [phone] Reason for Visit * Reason Comments Med Refill Encounter Details Date Type Department Care Team (Late st Contact Info) Description 05/18/2024 Refill [facility] [address] [place] [address] Tereza Waters, LABOURERS [address] [place] [address] Uncontrolled type 2 diabetes mellitus with hyperglycemia (CMS/HCC) Social History Tobacco Use Types Packs/Day Years Used Date Smoking Tobacco: Never Passive Smoke Exposure: Never Smokeless Tobacco: Never Alcohol Use Standard Drinks/Week Comments Yes 3 (1 standard drink = 0.6 oz pure alcohol) Normal week max, holiday season has varied Humiliation, Afraid, Rape, and Kick questionnair e Answer Date Recorded Within the last year, have y ou been afraid of your partner or ex-partner? No 05/16/2024 Within the last year, have y ou been humiliated or emotionally abused in other ways by your partner or ex-partner? No Within the last year, have y ou been kicked, hit, slapped, or otherwise physically hurt by your partner or ex-partner? No 05/16/2024 Within the last year, have y ou been raped or forced to have any kind of sexual activity by your partner or ex-partner? No 05/16/2024 PHQ-2 Answer Date Recorded Patient Health Questionnaire-2 Score 0 02/19/2024 Hunger Vital Sign Answer Date Recorded Within the past 12 months, y ou worried that your food would run out before you got the money to buy more. Patient declined Within the past 12 months, t he food you bought just didn't last and you didn't have money to get more. Patient declined PRAPARE - Transportation Answer Date Re corded In the past 12 months, has l ack of transportation kept you from medical appointments or from getting medications? No 04/18 In the past 12 months, has l ack of transportation kept you from meetings, work, or from getting things needed for daily living? No 05/16/2024 Housing Stability Vital Sign Answer Kory e Recorded In the last 12 months, was t here a time when you were not able to pay the mortgage or rent on time? No 05/16/20 24 In the last 12 months, how many places have you lived? 1 05/16/2024 In the last 12 months, was t here a time when you did not have a steady place to sleep or slept in a nursing home (including now)? Patient declined 05/16/2024 Utilities Answer Date Recorded In the past 12 months has th e electric, gas, oil, or water company threatened to shut off services in your home? Patient declined 05/16/2024 PHQ-2A Answer Date Recorded Patient Health Questionnaire-2 Score 0 05/09/2023 Sex and Gender Information Value Date Recorded Sex Assigned at Male 07/18/2021 9:42 AM EST Legal Sex Male 6:58 PM EDT Gender Identity Male 07/18/2021 9:42 AM EST Sexual Orientation Straight 07/18/2021 9: 42 AM EST documented as of this encounter Miscellaneous Notes * Telephone Encounter - Madelin Armijo - 05/21/2024 11:15 AM EST He is fine increasing dose, he said he has only had a problem with the last dose increase which hassubsided . documented in this encounter Plan of Treatment Not on file documented as of this encounter Visit Diagnoses Diagnosis Uncontrolled type 2 diabetes mellitus with hyperglycemia (CMS/HCC) documented in this encounter Additional Health Concerns Assessment Noted Time A Body Mass Index follow-up plan has been documented for the patient 05/16/2024 2:09 PM EDT documented as of this encounter Care Teams Oral Communication Instructor Relationship Specialty Start Date End Date Tereza Waters APRN [address] [place] [address] PCP - General 11/27/20 documented as of this encounter
--- OUTSIDE RECORDS SUMMARY | 2024-12-23 08:47 | XMS_ITS | Encounter Summary ---
Author Organization [facility] Address [facility] [place] [address] Care Team Providers Care Windows Server Administrator Name Role Phone Tereza Waters APRN Primary Care Provider [phone] Reason for Visit * Reason Onset Date Comments Med Refill 05/22/2021 Encounter Details Date Type Department Care Team (Late st Contact Info) Description 05/22/2021 Refill [facility] [address] [place] [address] Tereza Waters APRN [address] [place] [address] Social History Tobacco Use Types Packs/Day Years Used Date Smoking Tobacco: Never Smokeless Tobacco: Never PHQ-2 Answer Date Recorded Patient Health Questionnaire-2 Score 0 01/11/2021 Sex and Gender Information Value Date Recorded Sex Assigned at Male 07/18/2021 9:42 AM EST Legal Sex Male 6:58 PM EDT Gender Identity Male 07/18/2021 9:42 AM EST Sexual Orientation Straight 07/18/2021 9: 42 AM EST documented as of this encounter Miscellaneous Notes * Telephone Encounter - Tereza Waters APRN - 05/25/2021 7:54 AM EST Approving, but needs appt for additional refills. * Telephone Encounter - Sabina Pat - 05/24/2021 4:44 PM EST Per protocol, 1 medication(s), Simvastatin 20mg, have been approved for 90 day supply with 0 refill(s). The medication [place] documented in this encounter Plan of Treatment Not on file documented as of this encounter Visit Diagnoses Not on filedocumented in this encounter Care Teams Windows Server Administrator Relationship Specialty Start Date End Date Tereza Waters APRN [facility] [place] [address] PCP - General 11/27/20 documented as of this encounter
--- OUTSIDE RECORDS SUMMARY | 2024-12-23 08:47 | XMS_ITS | Encounter Summary ---
Author Organization [facility] Address [address] [place] [address] Care Team Providers Care Content Manager Name Role Phone Tereza Waters APRN Primary Care Provider [phone] Reason for Visit * Reason Comments Pre-Visit Review Encounter Details Date Type Department Care Team (Late st Contact Info) Description 11/13/2024 Education [facility] [address] [place] [address] Skinny Hernandez, RN Social History Tobacco Use Types Packs/Day Years [...] afraid of your partner or ex-partner? No 08/09/2024 Within the last year, have y ou been humiliated or emotionally abused in other ways by your partner or ex-partner? No Within the last year, have y ou been kicked, hit, slapped, or otherwise physically hurt by your partner or ex-partner? No 08/09/2024 Within the last year, have y ou been raped or forced to have any kind of sexual activity by your partner or ex-partner? No 08/09/2024 PHQ-2 Answer Date Recorded Patient Health Questionnaire-2 Score 0 08/16/2024 Hunger Vital Sign Answer Date Recorded Within the past 12 months, y ou worried that your food would run out before you got the money to buy more. Never true 08/09/19 25 Within the past 12 months, t he food you bought just didn't last and you didn't have money to get more. Never true 08/09/2024 PRAPARE - Transportation Answer Date Re corded In the past 12 months, has l ack of transportation kept you from medical appointments or from getting medications? No 07/18 In the past 12 months, has l ack of transportation kept you from meetings, work, or from getting things needed for daily living? No 08/09/2024 Housing Stability Vital Sign Answer Kory e Recorded In the last 12 months, was t here a time when you were not able to pay the mortgage or rent on time? No 05/16/20 In the last 12 months, how many places have you lived? 1 05/16/2024 In the last 12 months, was t here a time when you did not have a steady place to sleep or slept in a correction (including now)? Patient declined 05/16/2024 PHQ-9 Answer Date Recorded Patient Health Questionnaire-9 Score 0 08/16/2024 Housing Stability Vital Sign Answer Kory e Recorded In the last 12 months, was t here a time when you were not able to pay the mortgage or rent on time? No 08/09/2024 In the past 12 months, how m any times have you moved where you were living? 0 08/09/2024 At any time in the past [address] [facility], were you homeless or living in a correction (including now)? No 08/09/2024 Utilities Answer Date Recorded In the past 12 months has th e [employer], gas, oil, or water [employer] threatened to shut off services in your home? No 08/09/2024 PHQ-2A Answer Date Recorded Patient Health Questionnaire-2 Score 0 05/09/2023 Sex and Gender Information Value Date Recorded Sex Assigned at Male 07/18/2021 9:42 AM EST Legal Sex Male 6:58 PM EDT Gender Identity Male 07/18/2021 9:42 AM EST Sexual Orientation Straight 07/18/2021 9: 42 AM EST documented as of this encounter Plan of Treatment Not on file documented as of this encounter Visit Diagnoses Not on filedocumented in this encounter Additional Health Concerns Assessment Noted Time PHQ-9 Depression Total Score: 0 08/16/19 25 8:12 AM EST A Body Mass Index follow-up plan has been documented for the patient 10/15/2024 9:39 AM EDT documented as of this encounter Care Teams Content Manager Relationship Specialty Start Date End Date Tereza Waters APRN [address] [place] [address] PCP - General 11/27/20 documented as of this encounter
--- OUTSIDE RECORDS SUMMARY | 2024-12-23 08:47 | XMS_ITS | Clinical Summary ---
Author Organization [facility] Address [address] [place] [address] Phone [email or web address] Care Team Providers Care Precision Farming Specialist Name Role Phone Unavailable Primary Care Provider Unavailabl e Allergies Active Allergy Reactions Criticality Noted Date Comments Sulfa Antibiotics Shortness of breath High 4 Medications metFORMIN (FORTAMET) 1000 MG 24 hr tablet Take 1,000 mg by mouth 1 (one) time each day with dinner. Do not crush, chew, or split. Active lisinopril (ZESTRIL) 10 MG tablet Take 10 mg by mouth 1 (one) time each day. Active simvastatin (ZOCOR) 10 MG tablet Take 10 mg by mouth every night. Active Semaglutide (OZEMPIC, 2 MG/DOSE, SC) Inject 2 mg under the skin 1 (one) time per week. Active Active Problems Problem Noted Date Diagnosed Date Abnormal results of liver function studies 08/30 Overview (12/13/2017): Sprain of costal cartilage 08/30/2011 Overview (12/13/2017): Obesity 08/12/2011 Overview (12/13/2017): Routine general medical exam ination at a health care facility 08/12/2011 Overview (12/13/2017): Pain in thoracic spine 08/10/2011 Overview (12/13/2017): Abdominal pain 08/10/2011 Overview (12/13/2017): Immunizations Immunization Administration Dates Next Due COVID-19 (Pfizer Stephenson 12 yrs+) (CVX-208) 021,09/25/2020 Td, adsorbed, PF, adult, Lf, unspecified (CVX-19 6) 07/17/2007 Social History Tobacco Use Types Packs/Day Years Used Date Smoking Tobacco: Never Smokeless Tobacco: Never Intimate Partner Violence Answer Date R ecorded Insults You Not on file 10/27/2020 Threatens You Not on file 10/27/2020 Screams at You Not on file 10/27/2020 Physically Hurt Not on file 10/27/2020 Intimate Partner Violence Score Not on file 10/27/2020 Depression Answer Date Recorded PHQ Total Score 0 10/31/2023 Stress Answer Date Recorded Stress in your Life Not on file 05/20/2024 Dealing with Stress 3 05/20/2024 Sex and Gender Information Value Date Recorded Sex Assigned at Not on file Legal Sex Male 7:24 AM CDT Gender Identity Not on file Sexual Orientation Not on file Last Filed Vital Signs Vital Sign Reading Time Taken Comments Blood Pressure 130/72 08/09/2024 3:29 PM EST Pulse 85 10/31/2023 3:54 PM EDT Temperature 35.9 C (96.7 F) 10/31/2023 3:54 PM EDT Respiratory Rate 14 10/31/2023 3:54 PM EDT Oxygen Saturation - - Inhaled Oxygen Concentration - - Weight 138 kg (304 lb 12.8 oz) 08/09/2024 3:29 P M EST Height 190.5 cm (6' 3 ) 08/09/2024 3:29 PM EST Body Mass Index 38.1 08/09/2024 3:29 PM EST Plan of Treatment Health Maintenance Due Date Last Done Comments Dental Cleaning/Exam 1984 HIV Screening 1984 Hepatitis C Screening 1984 Annual Preventive Exam 2002 Hep B Infection Screening - Triple Screen 2002 Hepatitis B Immunization (1 of - 19+ 3-dose series) 2003 Covid-19 Immunization ( season) 2024 07/01/2021, 10/16/2020, 09/25/2020 Tetanus Diphtheria and Pertussis Immunization (3 - Td or Tdap) 02/24/2028 02/23/2018, 12/30/2013 Pneumococcal: Ped (0 to 5 Yrs) and At-Risk Member (6 to 64 Yrs) Aged Out 12/30/2013 No longer eligible based on patient's age to complete this topic Influenza Immunization Completed 4, 05/09/2023, 04/18/2022, Additional history exists HIB Immunization Aged Out No longer e ligible based on patient's age to complete this topic HPV Immunization Aged Out No longer e ligible based on patient's age to complete this topic Hepatitis A Immunization Aged Out No longer eligible based on patient's age to complete this topic Polio Immunization Aged Out No longer eligible based on patient's age to complete this topic Varicella Immunization Aged Out No lo nger eligible based on patient's age to complete this topic Insurance [place] 5
--- OUTSIDE RECORDS SUMMARY | 2024-12-23 08:47 | XMS_ITS | Encounter Summary ---
Author Organization [facility] [place] [facility] Address [address] [place] [address] Care Team Providers Care Plastic Surgery Technician Name Role Phone Tereza Waters CHEMICAL LAB SUPERVISOR Primary Care Provider [phone] Reason for Visit * Reason Comments Med Refill Encounter Details Date Type Department Care Team (Late st Contact Info) Description 02/06/2021 Refill [facility] [address] [place] [address] Tereza Waters, CHEMICAL LAB SUPERVISOR [address] [place] [address] Social History Tobacco Use Types Packs/Day Years Used Date Smoking Tobacco: Never Smokeless Tobacco: Never PHQ-2 Answer Date Recorded Patient Health Questionnaire-2 Score 0 01/11/2021 Sex and Gender Information Value Date Recorded Sex Assigned at Male 07/18/2021 9:42 AM EST Legal Sex Male 6:58 PM EDT Gender Identity Male 07/18/2021 9:42 AM EST Sexual Orientation Straight 07/18/2021 9: 42 AM EST COVID-19 Exposure Response Date Recorded In the last month, have you been in contact with someone who was confirmed or suspected to have Coronavirus / COVID-19? No / Unsure 01/11/2021 7:35 AM EDT documented as of this encounter Miscellaneous Notes * Telephone Encounter - Tereza Waters, RESISTANCE WELDER - 02/10/2021 11:42 AM EDT Approving, but needs appt for additional refills. documented in this encounter Plan of Treatment Not on file documented as of this encounter Visit Diagnoses Not on filedocumented in this encounter Care Teams Plastic Surgery Technician Relationship Specialty Start Date End Date Tereza Waters, CHEMICAL LAB SUPERVISOR [address] [place] [address] PCP - General 11/27/20 documented as of this encounter
--- OUTSIDE RECORDS SUMMARY | 2024-12-23 08:47 | XMS_ITS | Encounter Summary ---
Author Organization [facility] Address [address] [place] [id number] Care Team Providers Care Rug Sample Beveler Name Role Phone Tereza Waters RN DISCHARGE Primary Care Provider [phone] Reason for Visit * Reason Comments Med Refill Encounter Details Date Type Department Care Team (Late st Contact Info) Description 12/10/2024 Refill [facility] [address] [place] [address] Tereza Waters, RN DISCHARGE [address] [place] [address] Uncontrolled type 2 diabetes mellitus with hypoglycemia, unspecified hypoglycemia coma status (CMS/HCC) Social History Tobacco Use Types Packs/Day [...] place to sleep or slept in a fdc (including now)? Patient declined 05/16/2024 PHQ-9 Answer [...] [facility] you homeless or living in a fdc (including now)? No 08/09/2024 Utilities Answer Date Recorded In the past 12 months has th e [employer], gas, oil, or water company threatened to [...] encounter Miscellaneous Notes * Telephone Encounter - Cabrera Avelar, PharmD - 12/10/2024 2:56 PM EDT 1 medication(s) has been approved per protocol. documented in this encounter Plan of Treatment Not on file documented as of this encounter Visit Diagnoses Diagnosis Uncontrolled type 2 diabetes mellitus with hypoglycemia, unspecified hypoglycemia coma status (CMS/HCC) documented in this encounter Additional Health Concerns Assessment Noted Time PHQ-9 Depression Total Score: 0 08/16/19 25 8:12 AM EST A Body Mass Index follow-up plan has been documented for the patient 10/15/2024 9:39 AM EDT documented as of this encounter Care Teams Rug Sample Beveler Relationship Specialty Start Date End Date Tereza Waters APRN [facility] [place] [address] PCP - General 11/27/20 documented as of this encounter
--- OUTSIDE RECORDS SUMMARY | 2024-12-23 08:47 | XMS_ITS | Data Portability ---
Author Organization [facility] & MONY Cavazos ADMIN Address [address] [place] [id number] Care Team Providers Care Rehab Consultant Name Role Phone RIAZ ROCHA Primary Care Provider Assessment No assessment recorded. Plan of Treatment Reminders Order Date Submit Date Provider Last Modified By Organization Details Last Modified Time Details Appointments None record ed. Lab None record ed. Referral None record ed. Procedures None record ed. Surgeries None record ed. Imaging None record ed. Medication Orders None record ed. Patient TargetsNo targets recorded. Patient Instructions Encounter Date Encounter Id Patient Instructions Last Modified By Organization Details Last Modified Time 12/01/2022 [id number] Will schedule fo r lesion excision in the office under local at his earliest convenience. Risks, benefits and alternative of the procedure include but are not limited to bleeding, infection, paresthesia, scarring and need for further procedures. Patient understands this is not an exhaustive list of all possible risks and agrees to procede. [email or web address] [id number] Not available 12/02/2022 14:30:11 Reason for Referral None Reported. Procedures Surgical History Date Name Laterality Status Provider Name and Address Organization Details Recorded Time 12/30/19 23 Excision of lesion with (simple, intermediate layered, complex layered) closure completed Siobhan Mccurdy MD [address], [place], [address], [facility] & [place] 01/05/2023 08:29:42 07/17/18 85 ENT Surgery [facility] & [place] 12/13/2022 09:25:43 myringotomy and insertion of tympanic ventilation tube completed [facility] & [place] 12/01/2022 15:03:53 Imaging Results None recorded. Procedure Notes None recorded. Medical Equipment None Reported. Allergies Allergen ID Allergen Name Allergen Category Reaction Reaction Severity Criticality Documentation Date Start Date Code Code System Note Provider Name and Address Organization Details Recorded Time 98166 Substance with sulfonami de structure and antibacte rial mechanism of action (substanc e) medicatio n anaphylax is Not available high 12/01/2022 12312 8003 SNOMED Savanna Cobos [facility] & [place] 3 15:03:29 Medications Name Sig Start Date Stop Date Status Note LastModified by Organization Details LastModified Time metformin 500 mg tablet TAKE 1 TABLET BY MOUTH TWICE DAILY WITH MEALS 11/28 completed Not Available Not Available Not Available lisinopril 20 mg tablet active Not Available Not Available Not Available amoxicillin 875 mg tablet 11/30 completed Not Available Not Available Not Available simvastatin 20 mg tablet TAKE 1 TABLET BY MOUTH ONCE DAILY active Not Available Not Available No t Available ondansetron 4 mg disintegrat ing tablet DISSOLVE 1 TABLET IN MOUTH EVERY 8 HOURS NEEDED FOR NAUSEA AND VOMITING FOR UP TO 7 DAYS 11/28 completed Not Available Not Available Not Available metformin ER 1,000 mg tablet,exte nded release 24hr (osmotic) TAKE 1 TABLET BY MOUTH ONCE DAILY WITH DINNER (DO NOT CRUSH, CHEW, OR SPLIT) active Not Available Not Available No t Available Januvia 100 mg tablet TAKE 1 TABLET BY MOUTH ONCE DAILY active Not Available Not Available No t Available Farxiga 10 mg tablet TAKE 1 TABLET BY MOUTH ONCE DAILY active Not Available Not Available No t Available BinaxNOW COVID-19 Ag Self Test kit 12/28 completed Not Available Not Available Not Available Vitals Date Recorded Body weight Body temperature Heart rate Systolic blood pressure Diastolic blood pressure Provider Name and Address Organization Details Last Updated DateTime 12/01/2022 408576. 41 g 98.7 [degF] 115 /min 167 mm[Hg] 86 mm[Hg] Savanna ARCINIEGA [facility] & [place] 3 15:02:57 Date Recorded Body height Body mass index (BMI) Body weight Provider Name and Address Organization Details Last Updated DateTime 12/29/2022 190.5 cm 38.7 kg/m2 559568.63 g Savanna ARCINIEGA [facility] & [place] 12/29/2022 16:52:10 Social History Question Answer Notes LastModified by [employer] Details LastModified Time Tobacco Smoking Status Never Smoker Savanna Cobos [facility] & [place] 12/13/2022 09:25:40 Do You Have An Advance Directive? No Information not available 12/13/2022 Are You Blind Or Do You Have Difficulty Seeing? No Information not available 12/13/2022 What Was The Date Of Your Most Recent Tobacco Screening? 11/28/2022 Information not available 12/13/2022 Are You Passively Exposed To Smoke? Yes Information not available 12/13/2022 How Much Tobacco Do You Smoke? No Information not available 12/13/2022 How Many Years Have You Smoked Tobacco? 0 Information not available 12/13/2022 Sex: Unknown Functional Status Question Answer Note LastModified by [employer] Details LastModified Time Do you use any illicit or recreational drugs? No Information not available 12/13/2022 What is your level of alcohol consumption? Moderate Information not available 12/13/2022 Do you or have you ever used smokeless tobacco? 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 None Information not available 12/13/2022 Mental Status Question Answer Note LastModified by Organization D etails LastModified Time Do you feel stressed (tense, restless, nervous, or anxious, or unable to sleep at night)? [id number] Information not available 12/13/2022 Family History Relationship Description Onset Age of this Age Resolved Age Notes LastModified by Organization Details LastModified Time Father Allergy pt. added direct ly (11/28) [email or web address] Not available 11/28/2022 15:08:56 Father Disorder of endocrine system pt. added direct ly (11/28) [email or web address] Not available 11/28/2022 15:09:18 Maternal Grandmother Disorder of endocrine system pt. added direct ly (11/28) [email or web address] Not available 11/28/2022 15:09:18 Maternal Grandfather Cerebrovascu lar accident pt. added direct ly (11/28) [email or web address] Not available 11/28/2022 15:10:56 Medical History Condition Response Diabetes Y Vision or Eye Problems Y High Cholesterol Y Hypertension Y Past Encounters Encounter ID Performer Location Encounter Start Date Encounter Closed Date Diagnosis/Indication Diagnosis SNOMED-CT Code Diagnosis ICD10 Code Diagnosis Note [id number] Siobhan Mccurdy MD [facility] [address] [phone] 12/01/2022 14:49:43 12/01/2022 15:20:13 Mucocele of lower lip 854542748 K13.0 Will plan to remove this in the office. Explained this looks like a benign mucocele. Will see him back for excision or sooner if needed. [id number] Siobhan Mccurdy MD [facility] [address] [address] 12/29/2022 16:33:01 12/29/2022 17:16:40 Mucocele of lower lip 583818949 K13.0 Health Concerns Section Related Observation LastModified by Organization Detai ls LastModified Time None Recorded Concern Status LastModified by Organization Details LastModified Time None Recorded Advance Directives Directive N: Payers Insurance Date Sequence Insurance Name Policy Number Policy Aguirre Covered Member ID Aguirre Member ID Guarantor Name 01/05/2023 1 [place] [id number] Loc [place] [id number] Loc [place] Notes Date Note Type Note Provider Name and Address Organization Details Recorded Time 12/01/2022 text/html 37yo male in the office today to discuss a growth on the mucosal aspect of his lower lip. States he has had this growth for many years. States it is growing with time. He will often bite it on accident and it will bleed. Siobhan Mccurdy MD [address] [place] [address], [phone], [facility] - [place] & [place] 12/02/2022 14:30:20
--- OUTSIDE RECORDS SUMMARY | 2024-12-23 08:47 | XMS_ITS | Encounter Summary ---
Author Organization [facility] Address [address] [place] [address] Care Team Providers Care Boat Outboard Engine Mechanic Name Role Phone Tereza Waters APRN Primary Care Provider [phone] Encounter Details Date Type Department Care Team (Latest Contact Info) Description 11/20/2024 Travel Social History Tobacco Use Types Packs/Day Years [...] place to sleep or slept in a jail (including now)? Patient declined 05/16/2024 PHQ-9 Answer [...] any time in the past 12 m [facility], were you homeless or living in a jail (including now)? No 08/09/2024 Utilities Answer Date [...] documented as of this encounter Care Teams Boat Outboard Engine Mechanic Relationship Specialty Start Date End Date Tereza Waters APRN [address] [place] [address] PCP - General 11/27/20 documented as of this encounter
--- OUTSIDE RECORDS SUMMARY | 2024-12-23 08:48 | XMS_ITS | Clinical Summary ---
Author Organization [facility] Address [address] [id number] Care Team Providers Care Office Assistance Name Role Phone OdessaTereza APRN Primary Care Provider [phone] Allergies Active Allergy Reactions Criticality Noted Date Comments Sulfa Drugs Angioedema,Unknown - Patient states they do not know rxn details,Shortness of breath High 02/23/2018 Patient states happened as and was described to him as airway closing Medications lisinopril 20 MG tabletIndications :Essential hypertension Take 1 tablet (20 mg) by mouth every night. 90 tablet 3 02/19/20 24 Active simvastatin (Zocor) 20 MG tabletIndications :Dyslipidemia Take 1 tablet (20 mg) by mouth 1 (one) time each day. 90 tablet 3 02/19/20 24 Active tirzepatide (Mounjaro) 12.5 MG/0.5ML solution auto-injector solution pen-injectorIndic ations:Uncontroll ed type 2 diabetes mellitus with hyperglycemia (CMS/HCC) Inject 0.5 mL (12.5 mg) under the skin 1 (one) time per week. 4 mL 5 08/16/19 25 Active calcium carbonate (Os-Marco) 1250 (500 Ca) MG chewable tablet Chew 1 tablet daily. Active metFORMIN, OSM, (Fortamet) 1000 MG 24 hr tabletIndications :Uncontrolled type 2 diabetes mellitus with hypoglycemia, unspecified hypoglycemia coma status (CMS/HCC) TAKE 1 TABLET BY MOUTH ONCE DAILY WITH DINNER *DO NOT CRUSH, CHEW OR SPLIT* 90 tablet 1 12/11/19 25 Active metFORMIN, OSM, (Fortamet) 1000 MG 24 hr tabletIndications :Uncontrolled type 2 diabetes mellitus with hypoglycemia, unspecified hypoglycemia coma status (CMS/HCC) Take 1 tablet (1,000 mg) by mouth 1 (one) time each day with dinner. Do not crush, chew, or split. 180 tablet 1 02/19/20 24 025 Discontinued Active Problems Problem Noted Date Diagnosed Date Obesity (BMI 35.0-39.9 without comorbidity) 09/16 Severe obesity (BMI 35.0-39.9) with comorbidity 10/14/2024 Diabetes mellitus with diabetic neuropathy 08/16 Fracture of base of fifth me tatarsal bone of right foot at metaphyseal-diaphyseal junction 08/16/2024 Obstructive sleep apnea 04/15/2021 Allergic rhinitis with postnasal drip 10/09/2020 Daytime somnolence 10/09/2020 Dyslipidemia 02/23/2018 Essential hypertension 02/23/2017 Diabetes mellitus type 2, controlled, without co mplications 12/29/2014 Abnormal results of liver function studies 08/30 Overview (01/11/2021): Resolved Problems Problem Noted Date Diagnosed Date Resolved Date Enlarged tonsils 10/03/2019 03/12/2021 Encounters Date Type Department Care Team Description 12/10/2024 Refill [facility] [address] [place] [address] Tereza Waters, WILLIAMS Uncontrolled type 2 diabetes mellitus with hypoglycemia, unspecified hypoglycemia coma status (CMS/HCC) 11/20/2024 Travel 11/13/2024 Education [facility] [address] [place] [address] Skinny Hernandez RN 10/14/2024 9:20 AM EDT Office Visit [facility] [address] [place] [address] Devon Phipps MD Right elbow pain (Primary Dx) 10/14/2024 Travel from Last 3 Months Immunizations Immunization Administration Dates Next Due Influenza, injectable, quadrivalent 06/25/2015,0 03/31/2014 Influenza, injectable, quadr ivalent, preservative free 05/09/2023,04/18/2022,04/15/2021,04/21,04/23/2019,04/25/2018,05/04/2017 ,05/02/2016 Influenza, injectable, quadr ivalent, preservative free, pediatric 04/26/2018 Influenza, seasonal, injecta ble, preservative free 05/16/2024 [facility] COVID-19 Vac cine (Purple Cap) 12+ 10/16/2020,09/25/2020,09/25/2020 Pneumococcal Polysaccharide PPV23 12/30/2013 Td (adult) 07/17/2007 Tdap 02/23/2018,12/30/2013 Family History Medical History Relation Name Comments Hypertension Father Sleep apnea Father Diabetes Maternal Grandmother Zo fagan Cataracts Mother Colon cancer Paternal Grandmother Relation Name Status Comments Father Maternal Grandmother Zo fagan Mother Paternal Grandmother Social History Tobacco Use Types Packs/Day Years Used Date Smoking Tobacco: Never Passive Smoke Exposure: Never Smokeless Tobacco: Never Tobacco Cessation:Counseling Given: Not Answered Alcohol Use Standard Drinks/Week Comments Yes 3 [...] place to sleep or slept in a skilled nursing (including now)? Patient declined 05/16/2024 PHQ-9 Answer [...] any time in the past 12 m [facility], were you homeless or living in a skilled nursing (including now)? No 08/09/2024 Utilities Answer Date [...] Orientation Straight 07/18/2021 9: 42 AM EST Last Filed Vital Signs Vital Sign Reading Time Taken Comments Blood Pressure 130/76 10/14/2024 9:22 AM EDT Pulse 80 10/14/2024 9:22 AM EDT Temperature 36.6 C (97.9 F) 10/14/2024 9:22 AM EDT Respiratory Rate 20 10/14/2024 9:22 AM EDT Oxygen Saturation 97% 10/14/2024 9:22 AM EDT Inhaled Oxygen Concentration - - Weight 141 kg (309 lb 12.7 oz) 10/14/2024 9:22 A M EDT Height 190.5 cm (6' 3 ) 10/14/2024 9:22 AM EDT Body Mass Index 38.72 10/14/2024 9:22 AM EDT Plan of Treatment Health Maintenance Due Date Last Done Comments [facility]-HIV Screening 1984 [facility]-Hepatitis C Screening 1984 [facility]-/Child/Adol SDOH Screenings 1984 Diabetes: Dental Exam 1994 HPV Vaccines (1 - Male 3-dose series) 1999 [facility]-Hepatitis B Vaccines (1 of 3 - 19+ 3-dose series) 2003 [facility]-Pneumococcal Vaccine: Pediatrics (0 to 5 Years) and At-Risk Patients (6 to 49 Years) (2 of 2 - PCV) 12/30/2014 12/30/2013 [id number] Vaccine ( season) 2024 07/01/2021, 10/16/2020, 09/25/2020, Additional history exists [facility]-Diabetes: Hemoglobin A1C 11/15/2024 08/16/2024, 02/19/2024, 11/13/2023, Additional history exists [facility]- SDOH Screenings 02/06/2025 [facility]-Adult SDOH Screenings 02/06/2025 08/09/2024 [facility]-Depression Screening 08/16/2025 08/16/2024, 07/19 [facility]-DTaP,Tdap,and Td Vaccines (3 - Td or Tdap) 02/24/2028 02/23/2018, 12/30/2013, 07/17/2007 [facility]-Zoster Vaccines (1 of 2) 2034 [facility]-Influenza Vaccine Completed 05/16/2024 , 05/09/2023, 04/18/2022, Additional history exists [facility]-Obesity Intervention Completed 025, 08/16/2024, 05/16/2024, Additional history exists [facility]-HIB Vaccines Aged Out No longer e ligible based on patient's age to complete this topic [facility]-Hepatitis A Vaccines Aged Out No longer eligible based on patient's age to complete this topic [facility]-IPV Vaccines Aged Out No longer e ligible based on patient's age to complete this topic [facility]-Rotavirus Vaccines Aged Out No lo nger eligible based on patient's age to complete this topic [facility]-Varicella Vaccines Discontinued Procedures Procedure Name Priority Date/Time Associated Diagnosis Comments POCT GLYCOSYLATED HEMOGLOBIN (HGB A1C) Routine 08/16/2024 8:26 AM EST Controlled type 2 diabetes mellitus without complication, unspecified whether terminal clerk insulin use ([facility]) from Last 3 Months or Most Recently Relevant to Health Maintenance Results * POCT glycosylated hemoglobin (Hb A1C) (08/16/2024 8:26 AM EST) POCT Hemoglobin A1C 7.4 <5.7% Non-Diabe tic % [facility] Kit Lot Number [id number] [facility] Kit Expiration Date 04/15/2026 [facility] Blood Venous blood specimen / Unknown 08/16/2024 8:26 AM EST Tereza Waters WARBLE SAW OPERATOR POINT OF CARE TEST ENTER/EDIT ORDERABLES Final Result Performing Organization Address City/State/[facility] de Phone Number [facility] [address] [place] [address] from Last 3 Months or Most Recently Relevant to Health Maintenance Insurance Care Teams Office Assistance Relationship Specialty Start Date End Date Tereza Waters, WARBLE SAW [place] [phone] PCP - General 11/27/20
== END 2024-12-23 23:59 | disposition home or self-care (01) ==
LOC: RAD 08:43
PROVIDERS: PCP Nurse Practitioner Family; Visit Provider Podiatrist
DX: S92.351D Displaced fracture of fifth metatarsal bone, right foot, subsequent encounter for fracture with routine healing (principal); R93.7 Abnormal findings on diagnostic imaging of other parts of musculoskeletal system; Z98.890 Other specified postprocedural states
CPT/HCPCS: 73630

== ENCOUNTER 2025-03-31 08:36 | Outpatient (CLI) | payer BC, SELFPAY ==
--- NOTE | 2025-03-31 08:39 | XR_ITS ---
FINAL REPORT CLINICAL HISTORY: evaluate healing of right 5th metatarsal fracture since 10 months FINDINGS: RIGHT FOOT 3 views of the right foot were obtained. There is ORIF of 1/5 metatarsal fracture. No bony union is seen at this time. Hardware is unremarkable. There is up to 2 mm of separation at the fracture site. Soft tissues are unremarkable. IMPRESSION: Incompletely healed fifth metatarsal fracture. Reviewed, Interpreted and Dictated by Gamaliel Hernandez MD Transcribed by Ann Blank Authenticated and [facility]
--- OUTSIDE RECORDS SUMMARY | 2025-03-31 08:56 | XMS_ITS | Clinical Summary ---
Author Organization [facility] Address [address] [place] [address] Phone Care Team Providers Care Breakfast Bar Attendant Name Role Phone Unavailable Primary Care Provider Unavailabl e Allergies Active Allergy Reactions Criticality Noted Date Comments Sulfa (Sulfonamide Antibiotics) 12/15 Throat swelling Medications lancets (ONE TOUCH DELICA) 33 gauge [facility] MiscIndications:DM (diabetes mellitus) (HCC) 1 box by [facility].(Non-Dr ug; Combo Route) route before breakfast. 1 Each 11 6 Active Blood Sugar Diagnostic [facility] StripIndications:D iabetes mellitus type 2, controlled, without complications (HCC) One touch (ultra) test strips 1 box 11 6 Active lisinopril (PRINIVIL;ZESTRIL) 20 mg Oral TabletIndications: Essential hypertension Take 1 Tab by mouth daily. 30 Tab 2 7 Active simvastatin (ZOCOR) 20 mg Oral Tablet TAKE 1 TABLET EVERY EVENING 90 Tab 1 7 Active metFORMIN (GLUCOPHAGE) 500 mg Oral TabletIndications: Controlled type 2 diabetes mellitus without complication, without long-term current use of insulin (HCC) TAKE 1 TABLET TWICE A DAY WITH MEALS 180 Tab 9 Active Active Problems Patient Care Coordination No te Formatting of this note migh t be different from the original. [facility] Quarterly call, new DM A1C 5.3 03/2014 down from - 10.4 11/2013 changed from bi annual on 08/22/2014 Problem Noted Date Diagnosed Date Essential hypertension 02/23/2017 Diabetes mellitus type 2, controlled, without co mplications 12/29/2014 Dyslipidemia, goal LDL below 100 12/30/2013 Resolved Problems Problem Noted Date Diagnosed Date Resolved Date DM (diabetes mellitus) 12/30/201312/29 Elevated blood-pressure read ing without diagnosis of hypertension 12/30/2013 02/23/2017 Immunizations Immunization Administration Dates Next Due Influenza Patient Reported 05/02/2016 Influenza Vaccine Quadrivalent 06/25/2015,2013 Pneumococcal Polysaccharide 23 Valent 12/30/2013 Tdap 12/30/2013 Surgical History Surgery Date Site/Laterality Comments WISDOM TOOTH EXTRACTION Medical History Medical History Date Comments Diabetes (HCC) Family History Medical History Relation Name Comments Hypertension Father Stroke Maternal Grandfather Diabetes Maternal Grandmother Cancer Paternal Grandmother colon c ancer Relation Name Status Comments Father Alive Maternal Grandfather Alive Maternal Grandmother Alive Mother Alive Paternal Grandfather Alive Paternal Grandmother Social History Tobacco Use Types Packs/Day Years Used Date Smoking Tobacco: Never Smokeless Tobacco: Never Tobacco Cessation:Counseling Given: Yes Alcohol Use Standard Drinks/Week Comments Yes 0 (1 standard drink = 0.6 oz pur e alcohol) Sex and Gender Information Value Date Recorded Sex Assigned at Not on file Legal Sex Male 3:50 AM EDT Gender Identity Not on file Sexual Orientation Not on file Obstetrics History Last Filed Vital Signs Vital Sign Reading Time Taken Comments Blood Pressure 128/84 02/23/2017 8:56 AM EDT Pulse 80 02/23/2017 8:56 AM EDT Temperature 36.8 C (98.2 F) 02/23/2017 8:56 AM EDT Respiratory Rate 12 02/23/2017 8:56 AM EDT Oxygen Saturation - - Inhaled Oxygen Concentration - - Weight 149.7 kg (330 lb) 02/23/2017 8:56 AM EDT Height 190.5 cm (6' 3 ) 02/23/2017 8:56 AM EDT Body Mass Index 41.25 02/23/2017 8:56 AM EDT Plan of Treatment Health Maintenance Due Date Last Done Comments Annual Wellness Exam 1987 Diabetic Eye Exam 2002 Hepatitis B Vaccine (1 of 3 - 19+ 3-dose series) 2003 Pneumococcal Vaccine 0-49 (2 of 2 - PCV) 12/30/2014 12/30/2013 Kidney Health: uACR 04/09/2015 04/09/2014 Hemoglobin A1c 06/23/2017 12/22/2016, 06/16, 12/24/2015, Additional history exists Kidney Health: eGFR 12/22/2017 12/22/2016, 06/27/2016, 12/24/2015, Additional history exists Lipids 12/22/2017 12/22/2016, 02/2017, 06/27/2016, Additional history exists DTaP/TDaP/Td (2 - Td or Tdap) 12/31/2023 12/30/2013 COVID-19 Vaccine ( season) 2025 Influenza Vaccine (#1) 2025 , 05/02/2016, 06/25/2015, Additional history exists Meningococcal B Vaccine Aged Out No l onger eligible based on patient's age to complete this topic Goals Goal Patient Goal Type Associated Problems Recent Progress Patient-Stated? Author Blood Pressure < 140/90 Blood Pressure 128/84(2016 8:56 AM EDT) No Chelsey Nettles, RMA BMI (Calculated) < 30 General 41.3(02/24/20 8:56 AM EDT) No Chelsey Nettles RMA Maintain a healthy diet, exercise regularly and maintain an ideal body weight General No Chelsey Nettles, RMA HEMOGLOBIN A1C < 7.0 Result Component 6(12/22/2016 7:47 AM EDT) No Chelsey Nettles RMA Procedures Procedure Name Priority Date/Time Associated Diagnosis Comments COMPREHENSIVE METABOLIC PANEL Routine 12/22/2016 8:50 AM EDT Controlled type 2 diabetes mellitus without complication, without long-term current use of insulin (HCC) Dyslipidemia, goal LDL below 100 LIPID PANEL REFLEX Routine 12/22/2016 8: 50 AM EDT Dyslipidemia, goal LDL below 100 POCT GLYCATED HEMOGLOBIN, TOTAL Routine 12/22/2016 7:47 AM EDT Controlled type 2 diabetes mellitus without complication, without long-term current use of insulin (HCC) MICROALBUMIN/CREATININ E RATIO URINE Routine 04/09/2014 9:29 AM EDT Nonspecific abnormal results of thyroid function study from Last 3 Months or Most Recently Relevant to Health Maintenance Results * (ABNORMAL) LIPID PANEL REFLEX (12/22/2016 8:50 AM EDT) Pathologist [facility] Cholesterol 136 <=200 mg/dL [facility] Comment: < 200 Desirable 200 - 239 Borderline High >= 240 High Triglyceride 168(H) <=150 mg/dL [facility] Comment: < 150 Normal 150 - 199 Borderline High 200 - 499 High >= 500 Very High HDL 30(L) >=40 mg/dL [facility] Comment: > 60 Optimal 40 - 60 Acceptable < 40 Low Blood specimen (specimen) UPPER LIMB STRUCTURE / Unknown 12/22/2016 8:50 AM EDT 12/22/2016 11:59 AM EDT us Cecy Montero MD CHEMISTRY ORDERABLES Final R esult [facility] [address] [place] [address] * (ABNORMAL) COMPREHENSIVE METABOLIC PANEL (12/22/2016 8:50 AM EDT) Pathologist [facility] Sodium 139 136 - 145 mmol/L [facility] Potassium 4.1 3.5 - 5.0 mmol/L [facility] Chloride 101 98 - 107 mmol/L [facility] Total CO2 23 22 - 29 mmol/L [facility] Anion Gap 15 7 - 16 mmol/L [facility] Calcium 9.2 8.6 - 10.2 mg/dL [facility] Glucose Lvl 124(H) 74 - 100 mg/dL [facility] BUN 12 6 - 20 mg/dL [facility] Creatinine 0.76 0.67 - 1.30 mg/dL [facility] Albumin 4.2 3.5 - 5.2 gm/dL [facility] Total Protein 7.5 6.4 - 8.3 gm/dL [facility] Bili Total 0.5 0.1 - 1.4 mg/dL [facility] AST 26 <=40 IU/L [facility] ALT 51(H) <=41 IU/L [facility] Alk Phos 55 40 - 129 IU/L [facility] GFR Afr Am >60 [facility] GFR Non Afr Am >60 [facility] Blood specimen (specimen) UPPER LIMB STRUCTURE / Unknown 12/22/2016 8:50 AM EDT 12/22/2016 11:59 AM EDT Cecy Montero MD CHEMISTRY ORDERABLES Edited Result - Final Performing Organization Address City/[facility] Co de Phone Number [facility] [address] [place] [address] * (ABNORMAL) POCT GLYCATED HEMOGLOBIN, TOTAL (12/22/2016 7:47 AM EDT) Hemoglobin A1C 6.0 % SEP OFFICE Lot Number SEP OFFICE Expiration Date SEP OFFICE SeriAl # SEP OFFICE 12/22/2016 7:47 AM EDT Cecy Montero MD POINT OF CARE TEST ORDERABLE S Final Result Performing Organization Address [facility] de Phone Number SEP OFFICE * MICROALBUMIN/CREATININE RATIO URINE (04/09/2014 9:29 AM EDT) Urine Microalb <12.0 mg/L [facility] Urine Creatinine 151.5 mg/dL [facility] Ur Microalb/Creat <8 0 - 20 mg/gm [facility] Urine specimen (specimen) 04/09/2014 9:29 AM EDT 04/09/2014 10:51 AM EDT Marizol Mccullough MD URINE ORDERABLES Final Result Performing Organization Address City/[facility] Co de Phone Number [facility] [address] [place] [address] from Last 3 Months or Most Recently Relevant to Health Maintenance Insurance [employer] PPO [employer] PPO
--- OUTSIDE RECORDS SUMMARY | 2025-03-31 08:56 | XMS_ITS | Clinical Summary ---
Author Organization [facility] Address [address] [place] [id number] Phone [email or web address] Care Team Providers Care Insurance Billing Clerk Name Role Phone Unavailable Primary Care Provider [...] Immunization Administration Dates Next Due COVID-19 (Pfizer Stafford 12 yrs+) ([id number]) 021,09/25/2020 Td, adsorbed, PF, [...] HIV Screening 1984 Hepatitis C Screening 1984 HPV Immunization (1 - Male 3-dose series) 1999 Annual Preventive Exam 2002 Hep B Infection Screening - Triple Screen 2002 Hepatitis B Immunization (1 of 3 - 19+ 3-dose series) 2003 Covid-19 Immunization ( season) 2025 07/01/2021, 10/16/2020, 09/25/2020 Influenza Immunization (#1) 03/17/202504/18, 05/09/2023, 04/18/2022, Additional history exists Tetanus Diphtheria and Pertussis Immunization (3 - Td or Tdap) 02/24/2028 02/23/2018, 12/30/2013 Pneumococcal: Ped (0 to 5 Yrs) and At-Risk Member (6 to 64 Yrs) Aged Out 12/30/2013 No longer eligible based on patient's age to complete this topic HIB Immunization Aged Out No longer e [...] complete this topic Insurance [place] [address] [facility] [id number] [place] [address]
--- OUTSIDE RECORDS SUMMARY | 2025-03-31 08:56 | XMS_ITS | Clinical Summary ---
Author Organization [facility] Address [address] [place] [address] Care Team Providers Care Machine Clothing Worker Name Role Phone Evelin, Tereza KRAMER Primary Care Provider [phone] Social History Tobacco Use Types Packs/Day Years Used Date Smoking Tobacco: Never Assessed Abuse Screen Answer Date Recorded Unsafe at Home or Work/School Not on file Feels Threatened by Someone? Not on file 06/2023 Does Anyone Keep You from Co ntacting Others or Doint Things Outside the Home? Not on file 04/27/2023 Physical Sign of Abuse Present Not on file 1 Housing Stability Answer Date Recorded Current Living Arrangements Not on file 04/16 Potentially Unsafe Housing Conditions Not on reddy e 04/27/2023 Family and Community Support Answer Kory e Recorded Help with Day-to-Day Activities Not on file 04/27/2023 Lonely or Isolated Not on file 04/27/2023 Employment Answer Date Recorded Do you want help finding or keeping work or a clarice b? Not on file 04/27/2023 Disabilities Answer Date Recorded Concentrating, Remembering, or Making Decisions Difficulty Not on file 04/27/2023 Doing Errands Independently Difficulty Not on fi le 04/27/2023 Education Answer Date Recorded Help with school or training? Not on file Preferred Language Not on file 04/27/2023 Sex and Gender Information Value Date Recorded Sex Assigned at Not on file Legal Sex Male 1:35 PM EDT Gender Identity Not on file Sexual Orientation Not on file Plan of Treatment Health Maintenance Due Date Last Done Comments ANNUAL PHYSICAL 10/09/2019 HEPATITIS C SCREENING 10/09/2019 COVID-19 Vaccine (3 - 2024-26 season) 2025 10/16/2020, 09/25/2020 INFLUENZA VACCINE 04/16/2025 04/23/2019, , 05/02/2016 TDAP/TD VACCINES (3 - Td or Tdap) 02/24/2028 02/23/2018, 12/30/2013, 07/17/2007 Pneumococcal Vaccine 0-49 Aged Out 12/30/2013 No longer eligible based on patient's age to complete this topic HEMOGLOBIN A1C Discontinued 08/16/2024, 11/2023, 11/13/2023, Additional history exists Insurance [facility] PPO Member Subscriber Plan / Payer (Ef fective 2008-Present) Name:Loc [place] Relation to Subscriber:Self Name:Loc [place] Payer ID:[id number] (NAIC) Type:Not on file Address: [facility] [address] [place] [id number] Care Teams Machine Clothing Worker Relationship Specialty Start Date End Date Tereza Waters APRN [address] [place] [address] PCP - General Family Medicine 11/04/19
== END 2025-03-31 23:59 | disposition home or self-care (01) ==
LOC: RAD 08:37
PROVIDERS: PCP Nurse Practitioner Family; Visit Provider Podiatrist
DX: S92.351D Displaced fracture of fifth metatarsal bone, right foot, subsequent encounter for fracture with routine healing (principal)
CPT/HCPCS: 73630